=== PATIENT | female | born 1960 | race Caucasian/White ===

== ENCOUNTER 2018-04-10 10:12 | Outpatient (CLI) | payer BC ==
--- NOTE | 2018-04-10 11:46 | RAD ---
RIGHT FOOT RADIOGRAPHS THREE VIEWS: 04/10/2018 PROVIDED CLINICAL HISTORY: Right foot pain and swelling. FINDINGS: No evidence for fracture or other acute osseous abnormality. Alignment appears anatomic. Joint spac es appear preserved. A small plantar calcaneal enthesophyte is noted. IMPRESSION: No evidence for an acute osseous abnormality or significant arthropathy. POS: C
== END 2018-04-10 10:13 | disposition home or self-care (01) ==
LOC: SCSRAD 10:12
PROVIDERS: ATTEND Family Medicine
DX: M79.671 Pain in right foot (principal)